=== PATIENT | male | born 1950 | race Caucasian/White ===

== ENCOUNTER 2017-01-02 23:23 | Inpatient (IN) ==
[2017-01-02] MEDS ORDERED: Aspirin 81 MG TAB.CHEW PO ONE (23:38)
[2017-01-02 23:48] LABS: Basophils # 0.1 K/mcL (0.0-0.2); Basophils % 0.7 %; Eosinophils # 0.2 K/mcL (0.0-0.6); Eosinophils % 1.5 %; Hematocrit 48.3 % (37.5-50.1); Hemoglobin 16.7 g/dL (12.9-16.9); Immature Granulocytes % 0.6 % (0-4); Lymphocytes # 1.8 K/mcL (0.6-4.6); Lymphocytes % 15.8 %; Mean Corpuscular HGB Conc 34.6 g/dL (31.6-35.5); Mean Corpuscular Hemoglobin 29.3 pg (28.0-33.3); Mean Corpuscular Volume 84.7 fL (83.0-100.0); Mean Platelet Volume 8.6 fL (9.4-12.4); Monocytes # 0.9 K/mcL (0.0-1.3); Monocytes % 7.8 %; Neutrophils # 8.2 K/mcL (1.6-8.9); Platelet Count 317 K/mcL (140-400); Red Cell Distribution Width 13.6 % (11.5-14.5); Segmented Neutrophils % 73.6 %
[2017-01-02] MEDS ORDERED: *HR* FentaNYL (PF) 100 MCG/2 ML VIAL IVP ONE (23:48)
[2017-01-02] MEDS ORDERED: Ondansetron 4 MG/2 ML VIAL IVP ONE (23:48)
[2017-01-02 23:54] LABS: Prothrombin Time 10.9 Seconds (9.4-12.1)
[2017-01-02 23:57] LABS: Activated Partial Thrombo Time 29.7 Seconds (26.0-36.0)
[2017-01-03] LABS: BUN/Creatinine Ratio 19 (6-26); Blood Urea Nitrogen 26 mg/dL (8-26); Carbon Dioxide 26 mEq/L (19-29); Chloride 103 mEq/L (98-109); eGFR For African Americans > 60 (> 60); eGFR For Non-African Americans 53 (> 60)
[2017-01-03 00:01] LABS: Calcium 10.8 mg/dL (8.6-10.8); Glucose 107 mg/dL (70-99); Osmolality,Calculated 293 (280-300); Potassium 4.3 mEq/L (3.5-4.5); Sodium 139 mEq/L (136-145)
[2017-01-03] MEDS ORDERED: Nitroglycerin 0.4 MG TAB.SUBL SL ONE (00:02)
[2017-01-03] MEDS: Nitroglycerin 0.4 MG TAB.SUBL SL PRN ×2 (00:04→00:13)
[2017-01-03] MEDS ORDERED: 0.9 % Sodium Chloride 1,000 ML IVC ONE (00:13)
--- NOTE | 2017-01-03 00:16 | Emergency Department Note ---
START Narrative - START START: I examined this patient and my medical decision-making was reviewed with the GEAR TESTER/PA/Advanced Practice Nurse/Resident Physician. I agree with the documented findings, disposition and treatment plan as described except to the extent set forth below. ED attending note: Patient seen with emergency medicine resident Dr. Ball. Please see a copy of his note for details of the H&P, evaluation, management and disposition of this patient. We independently had yula-[id number] contact with the patient Briefly: 66-year-old male presents with intermittent chest pain at times worsen with exertion since 6 AM. Says that it has been getting progressively worse at times and came in tonight. Has high cholesterol and hypertension. Smokes cigar. Family history of coronary artery disease. Patient has no prior history of coronary artery disease. Patient's EKG nonspecific ST-T changes but no signs of ST elevation. Patient was given aspirin and nitroglycerin and fentanyl. Critical lab report came back critically elevated troponin at 0.9. Patient was notified of this. Patient likely has sustained a non-ST elevation myocardial infarction. Admission is pending awaiting hospitalist call back. Patient will get an STEMI protocol including heparin drip. Provided one-hour critical care service for this patient. Awaiting hospitalist call back.
[2017-01-03] MEDS ORDERED: Nitroglycerin 25 MG/250 ML INFUS..BTL IVC SCH (00:30)
[2017-01-03] MEDS ORDERED: *HR* Heparin 5,000 UNIT/ML VIAL IVP PRN ×3 (00:38→00:41)
[2017-01-03] MEDS ORDERED: *HR* Heparin 5,000 UNIT/ML VIAL IVP ONE ×2 (00:38→00:41)
--- NOTE | 2017-01-03 00:42 | Emergency Department Note ---
Disposition Clinical Impression: NSTEMI (non-ST elevated myocardial infarction) Disposition: Home, Self-Care Condition: Good Time of Disposition: 02:48 General Adult HPI - General Chief complaint: ED Chest Pain Stated complaint: CP Time Seen by Provider: 01/02/17 23:33 Source: patient Limitations: no limitations Nursing Notes Reviewed: Yes Vital Signs Reviewed: Yes - History of Present Illness HPI Narrative: Patient complaining of an aching chest pain in the center of his chest. No radiation. Associated nausea vomiting diaphoresis or shortness of breath. No alleviating or provoking factors. Began after he woke up. Progressively getting worse throughout the day. Pain Scale: 6 - Related Data Allergies Allergy/AdvReac Type Severity Reaction Status Date / Time No Known Allergies Allergy Verified 01/02/17 23:26 All systems ED: reviewed and negative except as stated. Constitutional: Denies: fever, chills ENT ED: Denies: congestion Cardiovascular: Reports: chest pain. Denies: palpitations, syncope Respiratory: Reports: dyspnea. Denies: cough, wheezes Gastrointestinal: Reports: nausea, vomiting. Denies: abdominal pain, diarrhea Genitourinary: Denies: urgency, dysuria, frequency Musculoskeletal: Denies: back pain, neck pain Integumentary: Denies: rash, abrasion Past Medical History - Past Medical History Attestation: Yes The following information was validated with the patient. Medical history: Reports: hyperlipidemia, hypertension - Social History Smoking Status: Current every day smoker Alcohol use: Reports: occasionally Drug use: Reports: none Physical Exam - General Limitations: no limitations General appearance: alert, in no apparent distress - Head Head exam: atraumatic, normocephalic, normal inspection - Eye Eye exam: Present: normal appearance, PERRL, EOMI. Absent: scleral icterus - ENT ENT exam: normal exam, normal oropharynx, mucous membranes moist - Neck Neck exam: Present: normal inspection, full ROM, trachea midline - Chest Chest inspection: Present: normal inspection, symmetric chest wall rise. Absent : tenderness - Respiratory Respiratory exam: Present: normal lung sounds bilaterally. Absent: respiratory distress - Cardiovascular Cardiovascular exam: Present: regular rate, normal rhythm, normal heart sounds - Abdominal Exam Abdominal exam: Present: soft, Non-Tender, normal bowel sounds. Absent: tenderness, distention, guarding, rebound - Extremities Exam Extremities exam: Present: normal inspection, full ROM, normal capillary refill. Absent: tenderness, pedal edema - Back Exam Back exam: Present: normal inspection, full ROM. Absent: tenderness, CVA tenderness (R), CVA tenderness (L) - Neurological Exam Neurological exam: Present: alert, oriented X3 - Psychiatric Psychiatric exam: Present: normal affect, normal mood - Skin Skin exam: Present: warm, dry, intact, normal color. Absent: rash, cyanosis, diaphoresis, erythema Course Course Narrative: Well-appearing healthy male patient presenting to the emergency department complaining of chest pain that began this morning. He states he woke up and noticed that he had an aching in his chest. He denies any cardiac history. He states he does have high cholesterol as well as hypertension that he takes medication for. He states that throughout the day the pain is gotten worse. He states that this time he is resting comfortably. He does report some shortness of breath associated with the chest pain as well as diaphoresis. He does also report 1 episode of vomiting today. He reports the chest pain as an ache across the center of his chest there is no radiation. He denies any nausea vomiting or diarrhea at this time. He denies any abdominal pain. His lung sounds are clear heart sounds are normal. He has no edema to his extremities. We will get an EKG as well as a cardiac workup on the patient. I anticipate admission due to his no cardiac history and chest pain story. - Reevaluation(s) Reevaluation #1: Patient is still having chest pain at this time. He states that it is getting worse. He has had 2 nitroglycerin and is going to receive fentanyl at this time. He is also had 4 friend. We will contact cardiology. Time: 00:29 Reevaluation #2: We are beginning to start the heparin and nitroglycerin drips. Walking by the patient's room he is holding his chest and appears to be short of breath. He does not look comfortable. Repeat EKG and a right-sided EKG we will consult the interventionalists. Please see EKG Dr. brewer for EKG changes. Time: 00:50 - Consultations Consultation #1: Dr Harry he advises to start the patient on a heparin and nitroglycerin drip. And admit to the hospital. He states that if this does not help with the patient's chest pain to contact the interventional radiologist starla. Time: 00:28 Consultation #2: Spoke with Dr Kaba. He accepted patient in stable condition. I did advise him that we were starting the patient on a heparin and nitroglycerin drip because of his continued pain. And at the transit mechanic was to be called if this did not relieve his pain. I spoke with the transit mechanic while was here in the emergency department. He is aware to contact Dr. Carrasquillo if the patient does develop ST elevation. Time: 00:42 Consultation #3: Spoke with Dr. Carrasquillo. He advised to give a dose of Brilinta while here. He is to receive Morphine for pain control and to call him if there is st elevation on his EKG. Time: 01:19 Vital Signs Temperature 97.4 F L 01/02/17 23:23 Pulse Rate 82 01/02/17 23:23 Respiratory Rate 18 01/02/17 23:23 Blood Pressure 167/99 01/02/17 23:23 O2 Sat by Pulse Oximetry 98 01/02/17 23:23 Temperature 97.4 F L 01/02/17 23:23 Pulse Rate 77 01/03/17 00:20 Respiratory Rate 16 01/03/17 00:20 Blood Pressure 110/79 01/03/17 00:20 O2 Sat by Pulse Oximetry 94 01/03/17 00:20 Oxygen Delivery Oxygen Delivery Room Air Medical Decision Making - Medical Records Medical records reviewed: Yes I reviewed the patient's medical records. - Lab Data Lab results reviewed: Yes I reviewed the patient's lab results. Result diagrams: 01/02/17 23:42 01/02/17 23:42 Lab Results 01/02/17 01/02/17 01/02/17 Range/Units 23:42 23:42 23:42 WBC 11.1 (4.3-11.1) K/mcL RBC 5.70 H (4.19-5.50) M/mcL Hgb 16.7 (12.9-16.9) g/dL Hct 48.3 (37.5-50.1) % MCV 84.7 (83.0-100.0) fL MCH 29.3 (28.0-33.3) pg MCHC 34.6 (31.6-35.5) g/dL RDW 13.6 (11.5-14.5) % Plt Count 317 (140-400) K/mcL MPV 8.6 L (9.4-12.4) fL Immature Gran % 0.6 (0-4) % Seg Neutrophils % 73.6 % Lymphocytes % 15.8 % Monocytes % 7.8 % Eosinophils % 1.5 % Basophils % 0.7 % Neutrophils # 8.2 (1.6-8.9) K/mcL Lymphocytes # 1.8 (0.6-4.6) K/mcL Monocytes # 0.9 (0.0-1.3) K/mcL Eosinophils # 0.2 (0.0-0.6) K/mcL Basophils # 0.1 (0.0-0.2) K/mcL PT 10.9 (9.4-12.1) Seconds INR 1.0 APTT 29.7 (26.0-36.0) Seconds Sodium 139 (136-145) mEq/L Potassium 4.3 (3.5-4.5) mEq/L Chloride 103 (98-109) mEq/L Carbon Dioxide 26 (19-29) mEq/L BUN 26 (8-26) mg/dL Creatinine 1.35 H (0.72-1.25) mg/dL Est GFR ( Amer) > 60 (> 60) Est GFR (Non-Af Amer) 53 L (> 60) BUN/Creatinine Ratio 19 (6-26) Glucose 107 H (70-99) mg/dL Calculated Osmolality 293 (280-300) Calcium 10.8 (8.6-10.8) mg/dL Troponin I (0-0.03) ng/mL 01/02/17 Range/Units 23:42 WBC (4.3-11.1) K/mcL RBC (4.19-5.50) M/mcL Hgb (12.9-16.9) g/dL Hct (37.5-50.1) % MCV (83.0-100.0) fL MCH (28.0-33.3) pg MCHC (31.6-35.5) g/dL RDW (11.5-14.5) % Plt Count (140-400) K/mcL MPV (9.4-12.4) fL Immature Gran % (0-4) % Seg Neutrophils % % Lymphocytes % % Monocytes % % Eosinophils % % Basophils % % Neutrophils # (1.6-8.9) K/mcL Lymphocytes # (0.6-4.6) K/mcL Monocytes # (0.0-1.3) K/mcL Eosinophils # (0.0-0.6) K/mcL Basophils # (0.0-0.2) K/mcL PT (9.4-12.1) Seconds INR APTT (26.0-36.0) Seconds Sodium (136-145) mEq/L Potassium (3.5-4.5) mEq/L Chloride (98-109) mEq/L Carbon Dioxide (19-29) mEq/L BUN (8-26) mg/dL Creatinine (0.72-1.25) mg/dL Est GFR ( Amer) (> 60) Est GFR (Non-Af Amer) (> 60) BUN/Creatinine Ratio (6-26) Glucose (70-99) mg/dL Calculated Osmolality (280-300) Calcium (8.6-10.8) mg/dL Troponin I 0.98 H* (0-0.03) ng/mL - EKG Data EKG #1 EKG attestation: Yes I reviewed and interpreted this EKG. EKG results narrative: Time 23:31 Normal sinus rhythm at a rate of 81. Pulse 131. QRS duration is 94. QT is 343. QTC is 381. There is some ST depression in leads V1 to V3. I do not appreciate any overt ST elevation. There is no previous EKG to compare to. EKG #2 EKG attestation: Yes I reviewed and interpreted this EKG. EKG results narrative: Patient having chest pain. Repeat EKG 00:07 Normal sinus rhythm at a rate of 74. TX interval is 146. QRS duration is 100. QT is 362. QTC is 390. Some T-wave flattening in lead 3 compared to the previous EKG the ST depression in lead V1 has resolved.. EKG #3 EKG attestation: Yes I reviewed and interpreted this EKG. EKG results narrative: Patient continues to have worsening chest pain. Repeat EKG 00:51 Normal sinus rhythm at a rate of 65. TX interval is 138. Respiration is 90. Does have ST depressions in leads V2 V3. EKG #4 EKG attestation: Yes I reviewed and interpreted this EKG. EKG results narrative: Right-sided EKG. 00:53 Normal sinus rhythm at a rate of 64. TX interval is 140. QRS duration is 91. QT is 364. QTC is 374. There is ST depressions noted in V1 and V2. Also V3.
[2017-01-03] MEDS ORDERED: Heparin 25,000 UNIT/500 ML D5W 25,000 UNIT/500 ML MLS IVC SCH ×2 (00:45)
[2017-01-03] MEDS ORDERED: *HR* FentaNYL (PF) 100 MCG/2 ML VIAL IVP ONE (00:50)
[2017-01-03] MEDS ORDERED: Acetaminophen 325 MG TABLET PO PRN (00:51)
[2017-01-03] MEDS ORDERED: Naloxone 0.4 MG/ML INJ IVP PRN (00:51)
[2017-01-03] MEDS ORDERED: Ondansetron 4 MG/2 ML VIAL IVP PRN (00:51)
[2017-01-03] MEDS ORDERED: 0.9 % Sodium Chloride 1,000 ML ONE ×2 (01:19→08:32)
[2017-01-03] MEDS ORDERED: *HR* Ticagrelor 90 MG TABLET PO ONE (01:23)
[2017-01-03] MEDS ORDERED: *HR* Morphine 2 MG/ML SYRINGE IVP PRN (01:28)
[2017-01-03] MEDS: 0.9 % Sodium Chloride 1,000 ML IVC SCH ×2 (01:31→08:42)
--- NOTE | 2017-01-03 01:37 | Internal Med History&Physical ---
Date of Encounter: 01/03/17 Time of Encounter: 01:20 Assessment and Plan (1) NSTEMI (non-ST elevated myocardial infarction) Current visit: Yes Status: Acute Patient will be admitted to inpatient status due to his non-STEMI. Expected to be in the hospital at least 2 midnights. Expected discharge disposition is to home. High risk due to risk of lethal arrhythmias and the need for intravenous heparin which needs close monitoring. Aspirin, statin, Ticagrelor. Unable to use beta lorne as his heart rate is in the 60s. Heparin drip and nitroglycerin drip. If his chest pain worsens overnight, will repeat EKG. If there are significant changes in the EKG suggestive of STEMI, we will contact interventional radiology. Will titrate nitroglycerin drip for adequate chest pain relief. Morphine as needed for severe pain. (2) HTN (hypertension) Current visit: Yes Status: Chronic Blood pressure is adequately controlled. Patient is on nitroglycerin drip. Eventual ASHLIE inhibitor after acute episode is resolved. Qualifiers: Hypertension type: essential hypertension Qualified Code(s): I10 - Essential (primary) hypertension (3) Tobacco abuse Current visit: Yes Status: Chronic Counseled extensively regarding the need for cessation (4) STEPHANIE (acute kidney injury) Current visit: Yes Status: Acute Acute kidney injury versus chronic kidney disease stage III that is due to hypertensive nephropathy. Will obtain urinalysis and urine protein creatinine ratio. Monitor renal function. Avoid nephrotoxic agents and hypotension. Internal Medicine - H&P: HPI Chief complaint: Chest pain Admitted From: Emergency Dept Plans for Post Hospital Care: Home History of present illness: Mr. Treviño is a 66 year old male who presented to the emergency room due to chest pain that started yesterday morning at 6 AM. Patient states that initially, the pain was 7/10 in intensity in the middle of the chest which was a heaviness character without any radiation. It was intermittent and without any aggravating or relieving factors. As the pain continued to get worse throughout the day, he presented to the emergency department last night. In the emergency department, he was found to have elevated troponin and EKG changes and has been diagnosed with non-STEMI and started on heparin drip. Cardiogenic was consulted and as the patient continued to have chest pain that was severe despite opiate medications, he has also been started on nitroglycerin drip. Currently, patient states that his pain is 3/10 in intensity. He denies any shortness of breath, palpitations. He does report having had nausea and vomiting earlier yesterday with this chest pain. He also reports feeling cold and clammy and excessive sweating. He denies having any lightheadedness, abdominal pain, diarrhea or ulceration. He denies any urinary symptoms or swelling in his legs. He denies any weakness in his arms or legs. Past Med Surg Social Fam HX - Past Medical History Attestation: Yes The following information was validated with the patient. Source: patient Medical history: hyperlipidemia, hypertension Psychiatric history: no psych history - Past Surgical History Surgical History: no surgical history - Social History Smoking Status: Current every day smoker (cigars) Alcohol use: occasionally Drug use: none Current living situation: Home, With Family Activity Level: Independent ambulation, Very active Recent Out of Country Travel Within the Last 8 Weeks: No Exposure or Possible Exposure to Illness During Travel: No - Family History Father Hx Family Cardiac Disorders: Yes (ME @ 53 yrs age) Internal Medicine - H&P: Meds Allergies No Known Allergies Allergy (Verified 01/02/17 23:26) All Systems PM: A 10-system review of systems was performed and is negative for pertinent findings except as documented above in the HPI. - Constitutional Vitals: Temp Pulse Resp BP Pulse Ox 97.4 F L 61 16 140/88 99 01/02/17 23:23 01/03/17 01:14 01/03/17 01:14 01/03/17 01:14 01/03/17 01:14 Exam: Gen.: Sitting in a chair. Mild distress. Eyes: Pupils equal, round and reactive to light. Extraocular muscles intact. ENT: Moist mucous membranes. No oropharyngeal erythema or discharge. Chest: Clear to auscultation bilaterally. No adventitious sounds present. CVS: First and second heart sounds present. No murmurs, rubs or gallops. Abdomen: Soft, nontender, nondistended. Bowel sounds present. No hepatosplenomegaly. Skin: No decubitus ulcers appreciated. FOUNDRY MOLDER: No focal neuro deficits present. Psychiatric: Alert, awake and oriented to time, place and person. Lymphatic system: No lymphadenopathy appreciated Internal Med - H&P Results - Labs CBC & Chem 7: 01/02/17 23:42 01/02/17 23:42 - EKG Data -: EKG Interpreted by Myself EKG shows normal: sinus rhythm, ST-T waves (ST depressions lateral leads) Rate: normal - EKG Data Prior EKG available for review: yes When compared to previous EKG: there are significant changes Interpretation IM: suggestive of ischemia - Impressions ITS Impressions Chest X-Ray 01/03/17 23:39 IMPRESSION: No evidence of acute cardiopulmonary disease. Sclerotic lesion within the proximal right humeral shaft, typically bone island. If patient history of malignancy, metastatic disease would be an additional differential consideration. D/ / James Black MD / James Black MD Interpreting Provider: James Black MD - Diagnostic Studies Chest x-ray Status: image reviewed by me (No acute infiltrate or abnormality identified)
[2017-01-03] MEDS ORDERED: *HR* LORazepam 0.5 MG TABLET PO ONE (01:48)
[2017-01-03 02:26] LABS: Alanine Aminotransferase 25 Units/L (0-55); Albumin 4.1 g/dL (3.5-5.0); Albumin/Globulin Ratio 1.1 (1.1-2.2); Alkaline Phosphatase 149 Units/L (38-126); Aspartate Amino Transferase 28 Units/L (5-34); Bilirubin,Direct 0.1 mg/dL (0.0-0.5); Bilirubin,Indirect 0.3 mg/dL (0.0-1.2); Bilirubin,Total 0.4 mg/dL (0.2-1.2); Globulin 3.6 g/dL (2.4-3.5); Total Protein 7.7 g/dL (6.0-8.3)
[2017-01-03 05:29] LABS: Basophils % 0.4 %; Eosinophils # 0.1 K/mcL (0.0-0.6); Eosinophils % 0.8 %; Hematocrit 45.3 % (37.5-50.1); Hemoglobin 14.7 g/dL (12.9-16.9); Immature Granulocytes % 0.9 % (0-4); Lymphocytes # 1.9 K/mcL (0.6-4.6); Lymphocytes % 18.5 %; Mean Corpuscular HGB Conc 32.5 g/dL (31.6-35.5); Mean Corpuscular Hemoglobin 28.4 pg (28.0-33.3); Mean Corpuscular Volume 87.6 fL (83.0-100.0); Mean Platelet Volume 8.8 fL (9.4-12.4); Monocytes # 0.9 K/mcL (0.0-1.3); Monocytes % 8.2 %; Neutrophils # 7.4 K/mcL (1.6-8.9); Platelet Count 304 K/mcL (140-400); Red Blood Count 5.17 M/mcL (4.19-5.50); Red Cell Distribution Width 13.6 % (11.5-14.5); Segmented Neutrophils % 71.2 %
[2017-01-03 05:52] LABS: Alanine Aminotransferase 23 Units/L (0-55); Albumin 3.4 g/dL (3.5-5.0); Albumin/Globulin Ratio 1.1 (1.1-2.2); Alkaline Phosphatase 126 Units/L (38-126); Aspartate Amino Transferase 47 Units/L (5-34); BUN/Creatinine Ratio 19 (6-26); Bilirubin,Total 0.5 mg/dL (0.2-1.2); Blood Urea Nitrogen 23 mg/dL (8-26); Calcium 9.8 mg/dL (8.6-10.8); Carbon Dioxide 25 mEq/L (19-29); Chloride 109 mEq/L (98-109); Glucose 106 mg/dL (70-99); Osmolality,Calculated 298 (280-300); Sodium 142 mEq/L (136-145); Total Protein 6.4 g/dL (6.0-8.3); eGFR For African Americans > 60 (> 60); eGFR For Non-African Americans 59 (> 60)
[2017-01-03 06:02] LABS: Potassium 5.7 mEq/L (3.5-4.5)
[2017-01-03] MEDS ORDERED: Calcium Gluconate 1,000 MG in D5% in Water 100 ML IVPB ONE (07:54)
--- NOTE | 2017-01-03 08:09 | Cardiology Consult Note ---
Date of Encounter: 01/03/17 Time of Encounter: 07:45 Assessment and Plan (1) NSTEMI (non-ST elevated myocardial infarction) Current Visit: Yes Status: Acute Troponin 0.98, 5.57 with ischemic ECG changes. Pain free upon exam. Given asa and brilinta. Continue IV heparin and nitroglycerin gtt. Recommend LHC with possible PCI; alternatives, risks, and benefits discussed, he is agreeable to proceed. Check echocardiogram. Cardiac rehab phase I consulted. Continue statin and brilinta. Will start daily asa and betablocker. Further recommendations to follow. (2) STEPHANIE (acute kidney injury) Current Visit: Yes Status: Acute Mild STEPHANIE upon presentation, now improved. Continue IV hydration, plan for LHC today. (3) HTN (hypertension) Current Visit: Yes Status: Chronic Currently controlled. Betablocker added, will continue to monitor closely. Qualifiers: Hypertension type: essential hypertension Qualified Code(s): I10 - Essential (primary) hypertension (4) HLD (hyperlipidemia) Current Visit: Yes Status: Acute Agree with high-intensity statin. Risk factor modification. Qualifiers: Hyperlipidemia type: mixed hyperlipidemia Qualified Code(s): E78.2 - Mixed hyperlipidemia (5) Tobacco abuse Current Visit: Yes Status: Chronic 4-5 cigars/day x45 years. Smoking cessation counseling provided. Discussion w patient/family: The assessment and plan as outlined above was discussed with the patient and/or family members who expressed understanding and agreement. All questions were answered. Thank you for involving us in the care of your patient. Please call with any questions. The patient will be discussed and reviewed with Dr. Manley; changes to be made accordingly. History of Present Illness Consult date: 01/03/17 Requesting physician: Kaci Ball Consult reason: NSTEMI Chief complaint: Chest pain History of present illness: Mr. Treviño is a 66 year old male with PMH significant for HTN, HLD, and tobacco use who presented [facility] with 1-day history of mid-sternal chest discomfort. He reports he woke up yesterday morning with discomfort, described as pressure; pain was intermittent throughout the day. Discomfort worsening yesterday evening which prompted ED evaluation. Associated symptoms include fatigue, nausea, and vomiting. Reports discomfort not related to exertion. He reports he is very active at home and exercises multiple times a week, notes he has been tired lately. Upon exam, he is pain free. Mild STEPHANIE upon admission, now improved with IV hydration. Initial troponin 0.98 with ischemic ECG changes. Past Med Surg Social Fam HX - Past Medical History Attestation: Yes The following information was validated with the patient. Source: patient Medical history: hyperlipidemia, hypertension Psychiatric history: no psych history - Past Surgical History Surgical History: no surgical history - Social History Smoking Status: Current every day smoker Packs per day: 4 cigars/day x45 years. Smokeless Tobacco Status: No Alcohol use: occasionally Drug use: none - Family History Father Living Status: Age at : 81 Cause of : Cancer Hx Family Cardiac Disorders: Yes ([place] late 50's) Hx Family Cancer: Yes Medications and Allergies Allergies No Known Allergies Allergy (Verified 01/02/17 23:26) All Systems Review: A 10-system review of systems was performed and is negative for pertinent findings except as documented above in the HPI. - Cardiovascular Cardiovascular: as per HPI Physical Examination Vital Signs, Last 4 Hours Temp Pulse Resp BP Pulse Ox 01/03/17 06:38 98.3 F 73 16 129/94 95 01/03/17 04:51 60 113/62 General: Conversant, No Apparent Distress HEENT: Atraumatic, Normocephaly Neck: No JVD Cardiac: Reg Rate and Rhythm, Normal S1 and S2 Lungs: Normal Breath Sounds Neuro: Alert and responsive Abdomen: Soft Skin: No rashes noted on visualized skin Musculoskeletal: No Chest Wall Tenderness Extremities: No Edema, Normal Pulses Results 01/03/17 05:13 01/03/17 05:13 Lab Results 01/03/17 01/03/17 01/03/17 05:13 05:13 05:13 WBC 10.4 Hgb 14.7 D Hct 45.3 Plt Count 304 APTT Sodium 142 Potassium 5.7 H D Chloride 109 Carbon Dioxide 25 BUN 23 Creatinine 1.24 Glucose 106 H Calcium 9.8 Total Bilirubin 0.5 AST 47 H ALT 23 Alkaline Phosphatase 126 Troponin I 5.57 H* 01/03/17 06:34 WBC Hgb Hct Plt Count APTT 59.8 H D Sodium Potassium Chloride Carbon Dioxide BUN Creatinine Glucose Calcium Total Bilirubin AST ALT Alkaline Phosphatase Troponin I Active Medications Acetaminophen (Tylenol) 650 mg PO Q6HR PRN PRN Reason: Mild Pain (1-3) Stop: 07/05/17 00:52 Atorvastatin Calcium (Lipitor) 80 mg PO HS SHIRA Stop: 07/05/17 21:01 Heparin Sodium (Porcine) (Heparin) 4,000 unit IVP Q6HR PRN PRN Reason: SEE COMMENTS Stop: 07/05/17 00:42 Heparin Sodium (Porcine) (Heparin) 2,000 unit IVP Q6H PRN PRN Reason: SEE COMMENTS Stop: 07/05/17 00:42 Nitroglycerin (Nitroglycerin) 25 mg in 250 mls @ 3 mls/hr IVC .Q24H SHIRA PRN Reason: 5 MCG/MIN Stop: 07/05/17 00:31 Last Admin: 01/03/17 01:07 Dose: 5 mcg/min, 3 mls/hr Heparin Sodium/Dextrose (Heparin 25,000 Unit/500 Ml D5w) 25,000 unit in 500 mls @ 19.595 mls/hr IVC .Q24H SHIRA; 12 UNIT/KG/HR PRN Reason: Protocol Stop: 07/05/17 00:46 Last Titration: 01/03/17 07:51 Dose: 11.99 unit/kg/hr, 19.595 mls/hr Sodium Chloride (0.9 % Sodium Chloride) 1,000 mls @ 125 mls/hr IVC .Q8H SHIRA Stop: 07/05/17 01:31 Last Admin: 01/03/17 01:31 Dose: 125 mls/hr Morphine Sulfate (Morphine Sulfate) 4 mg IVP Q3H PRN PRN Reason: Severe Pain (7-10) Stop: 07/05/17 01:29 Naloxone HCl (Narcan) 0.4 mg IVP Q2MIN PRN PRN Reason: Opioid Reversal Stop: 07/05/17 00:52 Nitroglycerin (Nitroglycerin) 0.4 mg SL Q5MIN PRN PRN Reason: Chest Pain Stop: 07/05/17 00:03 Last Admin: 01/03/17 00:13 Dose: 0.4 mg Ondansetron HCl (Zofran) 4 mg IVP Q6H PRN PRN Reason: Nausea And Vomiting Stop: 07/05/17 00:52 Ticagrelor (Brilinta) 90 mg PO BID [facility] Stop: 07/05/17 09:01 - Imaging and Cardiology Echo: pending Cardiac cath: pending Other Results: 12 hour tele: avg HR=69 SR, few couplets. - EKG Interpretation EKG results cardiology: personally reviewed Consult Discharge Plan - Plan Referrals: Raphael Richardson CNP [Primary Care Provider] -
[2017-01-03] MEDS ORDERED: Heparin 1,000 UNITS/500 mL NS 500 ML ONE (08:32)
[2017-01-03] MEDS ORDERED: *HR* Heparin 10,000 UNIT/10 ML VIAL ONE (08:32)
--- NOTE | 2017-01-03 08:32 | Pre-Sedation Evaluation ---
Pre-sedation evaluation - Pre-sedation checklist Date of procedure: 01/03/17 Procedure: [facility] Recent Vitals: Last Vital Signs Temp 98.3 F 01/03/17 06:38 Pulse 73 01/03/17 06:38 Resp 16 01/03/17 06:38 BP 129/94 01/03/17 06:38 Pulse Ox 95 01/03/17 06:38 H&P (including ROS) documented in medical record: Yes Previous reaction to sedatives/anesthetics: No Dietary Status: NPO after Midnight Airway Assessment: Patient can open mouth completely, TMJ function normal ASA Classification *see protocol: CLASS II-Mild systemic disease, E-EMERGENCY- Add to any of the above to indicate emergent (acute mi - nstemi) Plan of Care: Pt appropriate candidate for procedure/moderate/conscious sedation , Risks/benefits of procedure/sedation discussed w/ patient/family
[2017-01-03] MEDS ORDERED: Verapamil 5 MG/2 ML VIAL ONE (08:33)
[2017-01-03] MEDS ORDERED: Nitroglycerin 1,000 MCG/10 ML VIAL IV ONE (08:33)
[2017-01-03] MEDS ORDERED: *HR* Midazolam HCl 2 MG/2 ML VIAL ONE (09:13)
[2017-01-03] MEDS ORDERED: *HR* FentaNYL (PF) 100 MCG/2 ML VIAL ONE (09:14)
[2017-01-03] MEDS ORDERED: *HR* Ticagrelor 90 MG TABLET ONE (10:06)
--- NOTE | 2017-01-03 10:23 | Invasive Diagnostic Lab Proc ---
Name: David Treviño Date of Study: 01/03/2017 Date: 1950 Ht: 70.9in Medical Record#: [id number] Age: 66 Wt: 179.90lb Gender: Male BSA: 2.01 Order #: [id number] BMI: 25.19 Physicians Procedure Physician: Daniel Carrasquillo MD, [facility] Referring MD: Referring MD: Staff Name Position Time In Estrellita Brewer RN Scrub 09:16 AM Domenica Roldan RN Music Library Assistant 09:16 AM [facility], Jessica RT (R) Monitor 09:16 AM Indications Indication Non-Stemi Procedures Performed Procedure L HRT ARTERY/VENTRICLE ANGIO PRQ CARD BINDU STENT W/ANGIO 1 VSL Pre-Procedure Checklist Informed consent is complete signed and on chart. H\\T\\P is on chart. ID band is on and ID verified with patient. Patient NPO for procedure The procedure was described for the patient and questions were answered. Blood Pressure: 131/72 ECG is on chart. Rhythm: NSR Plan of Care Patient will tolerate the procedure without complications. Adequate level of comfort will be maintained. Hemodynamics will remain stable Patient will recover from procedure without complications. Respiratory function will be maintained. Cardiac rhythm will remain stable. Patient temperature will be maintained. Patient and/or family have verbalized understanding of the procedure. Patient Education Chief Complaint/Reason for Test: Cardiac Cath Developmental Category: Geriatric (65+ years) Developmentally Appropriate for Age: Yes Learning Barriers: None Education Needs: Procedure Education Method: Verbal Information Taught: Cardiac Cath Educational Evaluation: Able to repeat information Intravenous Access Time IV Size Location DC'd Fluid/Drip Rate Units RN 09:29 AM 18g 1 08/08" Patent On Arrival Rt Antecubital 0.9NaCl 25 ml/hr Allergies No Known Allergies Vital Signs Time BP (mmHg) HR (bpm) O2 Sat. RR (bpm) LOC 09:29 AM 131 / 72 65 693 % 16 5 = Fully awake and oriented or at pre-proc level 09:13 AM 140 / 90 80 99 % 14 09:18 AM 129 / 86 65 95 % 19 09:23 AM 141 / 60 67 91 % 26 09:28 AM 131 / 72 66 94 % 26 09:33 AM 120 / 73 65 93 % 12 09:38 AM 109 / 68 66 90 % 13 09:43 AM 112 / 64 66 93 % 8 09:48 AM 134 / 79 67 93 % 16 09:53 AM 128 / 77 62 94 % 48 09:58 AM 122 / 74 61 94 % 23 10:03 AM 121 / 69 64 94 % 23 10:08 AM 126 / 80 69 96 % Procedural Medications Time Medication Dose Units Method Given By 09:16 AM Oxygen 2 L/min nasal cannula Domenica Roldan RN 09:16 AM Versed 2 mg Intravenous Dmoenica Roldan RN 09:16 AM Fentanyl 50 mcg Intravenous Domenica Roldan RN 09:33 AM Lidocaine 2% 0.5 ml Subcutaneous Daniel Carrasquillo MD, FAC 09:34 AM Heparin 4000 units Nitroglycerin 200 mcg Verapamil 2.5 mg Intraarterial Daniel Carrasquillo MD, FACC 09:48 AM Heparin 2000 units Intravenous Domenica Roldan RN 10:10 AM Brilinta 90 mg Orally Domenica Roldan RN ASA Classification: CLASS II- Mild systemic disease (i.e. well-controlled diabetes, hypertension, asthma, cigarette smoking) Tanya Score Preprocedure Postprocedure Activity 2- Moves 4 extremities sustained head lift Activity 2- Moves 4 extremities sustained head lift Circulation 2- SBP +/= 20 points of pre-anesthetic level Circulation 2- SBP +/= 20 points of pre-anesthetic level Consciousness 2- Awake and alert oriented x 3 Consciousness 2- Awake and alert oriented x 3 O2 Saturation 2- Able to maintain O2 satruation of 92% on room air O2 Saturation 2- Able to maintain O2 satruation of 92% on room air Respiratory 2- Able to deep breathe and cough well Respiratory 2- Able to deep breathe and cough well Total Score 10 Total Score 10 Contrast Agent: Isovue Diagnostic Contrast: 147 ml Total Contrast: 147 ml Fluoro Dose: 461 mGy Activated Clotting Time Time Seconds to Clot 09:48 AM 265 Procedure Log Time Note Enter By 09:12 AM CathStat 09:12 AM Vitals capture started with the following parameters, Patient=Adult, Interval=5 min, Initial Tkpxeewv=713 mmHg, Deflation Rate=5 mmHg, Cuff placed on Right Arm 09:13 AM HR=80 bpm, ZENL=453/90 mmhg, SpO2=99.0 %, Resp=14 B/min, Comment=SR 09:15 AM Recorded ECG: HR=74 Condition=Condition 1 09:16 AM Pt arrived to laboratory cureman 2 at 09:16 ejohnson 09:16 AM Estrellita Brewer RN Position: Scrub Time in: :16 ejohnson 09:16 AM Domenica Roldan RN Position: Music Library Assistant Time in: 09:16 ejohnson 09:16 AM Jessica Saldana RT (R) Position: Monitor Time in: 09:16 ejohnson 09:16 AM Patient charges- Angio tray pack, Navilyst 3mm J, Pulse Oximetry and ACIST tubing and transducer ejohnson 09:16 AM Case Delayed No ejohnson 09:16 AM Physician arrived 09:16 ejohnson 09:16 AM ASA Class CLASS II- Mild systemic disease (i.e. well-controlled diabetes, hypertension, asthma, cigarette smoking) ejohnson 09:16 AM Robbin and lu completed ejohnson 09:16 AM Sign in performed according to hospital policy. ejohnson 09:16 AM Procedure start 09:16 ejohnson 09:16 AM Time: 09:16 Oxygen on at 2 L/min per nasal cannula by [facility] 09[facility]16 AM Time: 09:16 Versed 2 mg Intravenous [facility] AM Time: 09:16 Fentanyl 50 mcg Intravenous Given by Domenica [facility]an [facility] 09:18 AM HR=65 bpm, BOIZ=785/86 mmhg, SpO2=95.0 %, Resp=19 B/min, Comment=nsr 09:23 AM HR=67 bpm, WSLZ=449/60 mmhg, SpO2=91.0 %, Resp=26 B/min, Comment=nsr 09:28 AM HR=66 bpm, LMLC=093/72 mmhg, SpO2=94.0 %, Resp=26 B/min, Comment=nsr 09:30 AM Hair removed from procedure site in procedure lab using clippers. Right wrist and bilateral groin prepped with Chloraprep by Jessica Saldana RT (R), safety strap applied then patient was draped. Skin intact. tsites 09:31 AM Time out performed according to hospital policy tsites 09:33 AM HR=65 bpm, BNLU=932/73 mmhg, SpO2=93.0 %, Resp=12 B/min, Comment=nsr 09:33 AM Time: 09:33 0.5 ml Lidocaine 2% to right radial Subcutaneous Given by Daniel Carrasquillo MD, [facility] tsites 09:34 AM Access obtained by percutaneous puncture. 6Fr 10cm Terumo Glidesheath sheath placed in right Radial artery. [id number] tsites 09:34 AM Time: 09:34 Patient given 4,000 units Heparin, 200 mcg Nitroglycerin, and 2.5 mg Verapamil Intraarterial by Daniel Carrasquillo MD, [facility] tsites 09:34 AM 5Fr TIG catheter inserted over the wire [facility] tsites 09:34 AM 0.035 260cm Navilyst 3mmJ wire [id number] tsites 09:36 AM Wire removed tsites 09:36 AM LCA angiography performed in multiple views. tsites 09:36 AM Recorded Pressure: Ao, HR=71, Condition=Condition 1 (Aorta) Ao 95/70/82 09:38 AM Lesion found in Distal Circumflex. Pre Stenosis: 99 Pre ANNAMARIA Flow: 2: Partial Flow/Perfusion (> 1 but < 3) tsites 09:38 AM repositioning catheter tsites 09:38 AM HR=66 bpm, LWRB=866/68 mmhg, SpO2=90.0 %, Resp=13 B/min 09:38 AM RCA angiography performed in multiple views. tsites 09:38 AM Recorded Pressure: Ao, HR=70, Condition=Condition 1 (Aorta) Ao 119/46/61 09:38 AM wire reinserted catheter removed tsites 09:39 AM 5Fr Pigtail catheter inserted over the wire [facility] tsites 09:39 AM Coronary Dominance: right tsites 09:40 AM Lesion found in Mid RCA. Pre Stenosis: 60 Pre ANNAMARIA Flow: tsites 09:40 AM Wire removed tsites 09:40 AM Recorded Pressure: LV, HR=69, Condition=Condition 1 (Left Ventricle) LV 113/-3/13 09:40 AM Catheter selectively placed in left ventricle tsites 09:40 AM Bolus angiogram of left Ventricle complete: 10 ml/sec for a total of 20 mls tsites 09:41 AM Recorded Pressure: LV, Ao, HR=71, Condition=Condition 1 (Left Ventricle) LV 108/-1/11, (Aorta) Ao 89/28/65 09:41 AM wire reinserted catheter removed tsites 09:42 AM PCI Status Urgent tsites 09:42 AM PCI Indication: PCI for high risk Non-STEMI or unstable angina tsites 09:42 AM PCI lesion in Distal Circumflex. tsites 09:42 AM 6Fr RBL 3.5 Convey guide catheter was used to cannulate the PCI vessel successfully. reused? No tsites 09:42 AM Inflation device was opened. tsites 09:43 AM HR=66 bpm, VLAU=320/64 mmhg, SpO2=93.0 %, Resp=8 B/min, Comment=nsr 09:45 AM ACT drawn tsites 09:46 AM .014 PT Graphix 180cm guide wire across target lesion- successful. reused? No tsites 09:48 AM At 09:48 the ACT was 265 seconds. tsites 09:48 AM Time: 09:48 Heparin 2000 units Intravenous Given by Domenica Roldan RN tsites 09:48 AM HR=67 bpm, GZAX=160/79 mmhg, SpO2=93.0 %, Resp=16 B/min, Comment=nsr 09:49 AM 2.0 mm x 12 mm Emerge Monorail balloon across target lesion- successful. reused? No tsites 09:50 AM Balloon inflated @ 10 mykel for 15 seconds tsites 09:50 AM Recorded Pressure: Ao, HR=66, Condition=Condition 1 (Aorta) Ao 118/73/93 09:50 AM Balloon inflated @ 10 mykel for 15 seconds tsites 09:51 AM Balloon catheter removed intact. tsites 09:51 AM 2.25mm x 20mm Synergy drug-eluting stent across target lesion- successful Lot #[id number] tsites 09:53 AM HR=62 bpm, DEKT=589/77 mmhg, SpO2=94.0 %, Resp=48 B/min, Comment=nsr 09:54 AM Stent deployed @ 12 mykel for 33 seconds tsites 09:55 AM Stent delivery system removed intact. tsites 09:55 AM 2.25 mm x 20mm NC Trek Rx balloon across target lesion- successful. reused? No tsites 09:57 AM Balloon inflated @ 16 mykel for 24 seconds tsites 09:58 AM HR=61 bpm, QBFZ=286/74 mmhg, SpO2=94.0 %, Resp=23 B/min 09:59 AM Balloon catheter removed intact. tsites 10:00 AM 3.5 mm x 6mm NC Trek Rx balloon across target lesion- successful. reused? No tsites 10:02 AM Balloon inflated @ 16 mykel for 24 seconds tsites 10:03 AM HR=64 bpm, QLZG=428/69 mmhg, SpO2=94 %, Resp=23 B/min 10:07 AM Balloon catheter removed intact. tsites 10:07 AM Guide wire removed intact. tsites 10:07 AM Guide catheter removed intact. tsites 10:08 AM Procedure completed at 10:08 tsites 10:08 AM HR=69 bpm, HTLI=081/80 mmhg, SpO2=96 % 10:08 AM Sign out completed: Radiation Dose 461 mGy Fluoro Time: 6.4 Isovue 370 - 500ml contrast 147 ml given by Daniel Carrasquillo MD, [facility]. Complications: NoneCardiac Rehab Consult needed: YesConfirmed administered medications: Yes tsites 10:08 AM Isovue 370 - 500ml,1 Bottle(s) used. tsites 10:08 AM Arterial sheath pulled, Vasc Band closure device used and was Successful S/N. tsites 10:08 AM 9 ml air in Vasc Band. tsites 10:08 AM Post ECG NSR tsites 10:09 AM Post Blood Pressure 126/80 tsites 10:09 AM 10:09 Post Pulses Rt Radial 2+ tsites 10:09 AM Information taught Cardiac Cath, PCI, and Vasc Band tsites 10:09 AM Education needs Procedure, Plan of Care, and Responsibilities of Patient in Care tsites 10:09 AM Learning barriers :None tsites 10:09 AM Education Methods Verbal tsites 10:09 AM Education evaluation Able to repeat information tsites 10:09 AM Site status No bleeding/hematoma - Rt Wrist as reported by Estrellita Brewer RN at 10:09 tsites 10:10 AM Plavix, Effient or Brilinta given Yes tsites 10:10 AM Delay to floor No tsites 10:10 AM Patient out of room: 10:10 tsites 10:10 AM Family placed in consult room. tsites 10:11 AM Time: 10:10 Brilinta 90 mg Orally Given by Domenica Roldan RN tsites 10:13 AM Report given to francesca RAY Pt taken to 2N Room #3. 10:13 tsites 10:16 AM Right Coronary, Right Posterior Descending Arteries with Right Posterolateral and Acute Marginal branches with 60 % stenosis. If graft is supplying this area, 0 % stenosis tsites 10:16 AM Circumflex, Obtuse Marginal, Left Posterior Descending, and Left Posterolateral Coronary Arteries with 99 % stenosis. If graft is supplying this area, 0 % stenosis tsites Complications Complication None Hemodynamics Pressures Site Systolic/A Wave Diastolic/V Wave Mean AO 95 70 82 AO 119 46 61 LV 113 -3 13 LV 108 -1 11 AO 89 28 65 AO 118 73 93 Post Procedure Information Blood Pressure: 126/80 mmHg Rhythm: NSR Post procedural instructions were given Closure Device Time Device Success/Fail 01/03/2017 10:14:00 AM Mechanical Compression Successful Site Checks Time Location Status Staff Sheath In? Note 10:09 AM Rt Wrist No bleeding/hematoma Estrellita Brewer RN Pulses Time Site Pre-Procedure Post-Procedure Note 01/03/2017 9:29:00 AM Bilateral DP \\T\\ PT 2+ 01/03/2017 9:29:00 AM Bilateral radial 2+ 10:09:00 AM Rt Radial 2+ Updated by Jessica Saldana RT (R) on 01/03/2017 10:18:11 AM Jessica Saldana RT electronically signed on 01/03/2017 10:19:09 AM with status of Final
--- NOTE | 2017-01-03 11:23 | Event Note ---
Date of Encounter: 01/03/17 Time of Encounter: 11:21 66 M PMH of HTN, TObacco abuse Being managed for NSTEMI STEPHANIE S/P [facility] this am No chest pain at time of review Physical exam unremarkable, vitals stale STEPHANIE improving Continue current management
[2017-01-03] MEDS: Aspirin Enteric Coated 81 MG Tablet PO SCH (11:24)
[2017-01-03] MEDS: Metoprolol XL (24 HR) Succ 25 MG TAB.ER.24H PO SCH (11:25)
[2017-01-03] MEDS: *HR* Ticagrelor 90 MG TABLET PO SCH ×2 (11:25→22:01)
--- NOTE | 2017-01-03 11:26 | Event Note ---
Date of Encounter: 01/03/17 Time of Encounter: 09:00 - Cardiology Event Note Initial EKG not diagnostic of STEMI. Subsequent EKG suspicious for inferior current of injury. ACS protocol with aspirin, brilinta, heparin initiated on presentation with ntg drip reduced chest discomfort to mild. Repeat troponin consistent with acute AK. Patient emergently brought down for LHC showing codominant system with subtotally occluded distal circumflex s/p successful BINDU x 1. Preserved EF.
--- NOTE | 2017-01-03 12:37 | Electrocardiograph Report ---
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
--- NOTE | 2017-01-03 13:52 | Event Note ---
Date of Encounter: 01/03/17 Time of Encounter: 13:30 - Cardiology Event Note Seen and examined. Resting comfortably--no chest pain or discomfort. No issues with cath access site. s/p successful PTCA/BINDU to dLCx, EF preserved per LV gram, TTE pending. Recommend uninterrupted DAPT (asa + brilinta) for at least 1 year--verbalized understanding. Continue statin and betablocker. Recommend prn NTG tabs upon discharge. Cardiac Rehab phase I initiated. Post PCI education/restrictions discussed. Cardiology will sign-off, please call with questions. Will coordinate outpatient appt within 5-7 days with office. The patient was discussed and reviewed with Dr. Manley who agrees with plan as stated above.
--- NOTE | 2017-01-03 20:21 | Electrocardiograph Report ---
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
--- NOTE | 2017-01-03 20:22 | Electrocardiograph Report ---
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
[2017-01-04 00:33] LABS: Basophils # 0.1 K/mcL (0.0-0.2); Basophils % 0.5 %; Eosinophils # 0.2 K/mcL (0.0-0.6); Hematocrit 40.4 % (37.5-50.1); Hemoglobin 13.7 g/dL (12.9-16.9); Immature Granulocytes % 0.7 % (0-4); Lymphocytes # 1.6 K/mcL (0.6-4.6); Lymphocytes % 16.2 %; Mean Corpuscular HGB Conc 33.9 g/dL (31.6-35.5); Mean Corpuscular Hemoglobin 29.8 pg (28.0-33.3); Mean Corpuscular Volume 87.8 fL (83.0-100.0); Mean Platelet Volume 9.3 fL (9.4-12.4); Monocytes % 10.1 %; Platelet Count 267 K/mcL (140-400); Red Cell Distribution Width 13.8 % (11.5-14.5); Segmented Neutrophils % 70.5 %
[2017-01-04 00:44] LABS: BUN/Creatinine Ratio 18 (6-26); Blood Urea Nitrogen 23 mg/dL (8-26); Carbon Dioxide 23 mEq/L (19-29); Chloride 110 mEq/L (98-109); Glucose 115 mg/dL (70-99); Osmolality,Calculated 295 (280-300); Potassium 4.3 mEq/L (3.5-4.5); Sodium 140 mEq/L (136-145); eGFR For African Americans > 60 (> 60); eGFR For Non-African Americans 57 (> 60)
[2017-01-04 07:08] VITALS: BP 126/85
[2017-01-04] MEDS: *HR* Ticagrelor 90 MG TABLET PO SCH (07:39)
[2017-01-04] MEDS: Metoprolol XL (24 HR) Succ 25 MG TAB.ER.24H PO SCH (07:39)
[2017-01-04] MEDS: Aspirin Enteric Coated 81 MG Tablet PO SCH (07:39)
[2017-01-04] MEDS ORDERED: 0.9 % Sodium Chloride 500 ML IVC ONE (08:05)
[2017-01-04 08:52] LABS: Bilirubin,Urine Negative (Negative); Blood,Urine Negative (Negative); Clarity,Urine Clear (Clear); Color,Urine Yellow (Yellow); Glucose,Urine (UA) Normal (Normal); Ketones,Urine Negative (Negative); Leukocyte Esterase,Urine Negative (Negative); Nitrite,Urine Negative (Negative); Protein,Urine Negative (Neg-Trace); Specific Gravity,Urine 1.008 (1.010-1.025); Urobilinogen,Urine Normal (Normal)
--- NOTE | 2017-01-04 09:20 | Internal Med Progress Note ---
Date of Encounter: 01/04/17 Time of Encounter: 09:18 - Subjective Interval history: Seen and evaluated at bedside Being managed for NSTEMI, s/p [facility] Patient had complained of myalgias with use of lipitor in the past, changed to crestor Cr today slightly elevated , patient received contrast but had presented with STEPHANIE on day of presentation Denies prior hx of kidney disease Will give gentle bolus MOnitor Chem - Constitutional Vitals: Temp Pulse Resp BP Pulse Ox 98.3 F 60 16 126/85 97 01/04/17 07:05 01/04/17 07:48 01/04/17 07:05 01/04/17 07:05 01/04/17 07:05 General appearance: Present: A&O X 3, pleasant, no acute distress - Head Head exam: Present: atraumatic, normocephalic - Eye Eye exam: Present: PERRL, conjuntiva pink, sclera anicteric Pupils: Present: PERRL - Neck Neck exam general surgery: Present: supple, trachea midline. Absent: lymphadenopathy - Respiratory Respiratory exam: Present: CTAB. Absent: accessory muscle use, rales, rhonchi, wheezes - Cardiovascular Cardiovascular exam: Present: RRR, +S1, +S2. Absent: diastolic murmur, gallop, rubs, systolic murmur - GI/Abdominal GI/Abdominal exam: Present: normal bowel sounds, soft, no peritoneal signs. Absent: distended, tenderness - Extremities Exam Extremities exam: Present: warm, radial pulses palpable and symetrical. Absent : calf tenderness, cyanotic, pedal edema - Neurological Exam Neurological exam: Present: alert, CN II-XII intact, oriented X3, no focal deficits. Absent: pronater drift, facial droop, speech deficit - Skin Skin exam: Present: dry, intact Internal Medicine: Result - Labs CBC & Chem 7: 01/04/17 00:07 01/04/17 00:07 Labs: Short CBC 01/04/17 Range/Units 00:07 WBC 9.9 (4.3-11.1) K/mcL Hgb 13.7 (12.9-16.9) g/dL Hct 40.4 (37.5-50.1) % Plt Count 267 (140-400) K/mcL Neutrophils # 7.0 (1.6-8.9) K/mcL BMP 01/04/17 00:07 Sodium 140 Potassium 4.3 Chloride 110 H Carbon Dioxide 23 BUN 23 Creatinine 1.27 H Glucose 115 H Calcium 9.0 Cardiac Enzymes 01/03/17 01/03/17 01/04/17 Range/Units 08:25 19:21 00:07 Troponin I 10.82 H* 12.60 H* 10.17 H* (0-0.03) ng/mL Urine 01/04/17 Range/Units 08:35 Urine Color Yellow (Yellow) Urine Clarity Clear (Clear) Urine pH 6.0 (5.0-8.0) pH Units Ur Specific [place] 1.008 L (1.010-1.025) Urine Protein Negative (Neg-Trace) mg/dL Urine Glucose (UA) Normal (Normal) mg/dL - ABG Interpretation ABG results: PT/INR, D-dimer PT 10.9 Seconds (9.4-12.1) 01/02/17 23:42 Consult Discharge Plan - Plan Referrals: Raphael Richardson CNP [Primary Care Provider] - 01/09/17 9:00 am Killian Manley DO [Partnered Physician] - 01/11/17 8:30 am Prescriptions: Ticagrelor [Brilinta] 90 mg PO BID #60 tablet
--- NOTE | 2017-01-04 09:42 | Discharge Summary ---
Date of Encounter: 01/04/17 Time of Encounter: 09:41 - Discharge Diagnosis (1) CKD (chronic kidney disease) stage 3, GFR 30-59 ml/min Priority: Secondary Status: Chronic (2) NSTEMI (non-ST elevated myocardial infarction) Priority: Primary Status: Acute (3) HTN (hypertension) Priority: Secondary Status: Chronic Qualifiers: Hypertension type: essential hypertension Qualified Code(s): I10 - Essential (primary) hypertension (4) Tobacco abuse Priority: Secondary Status: Chronic (5) HLD (hyperlipidemia) Priority: Secondary Status: Chronic Qualifiers: Hyperlipidemia type: mixed hyperlipidemia Qualified Code(s): E78.2 - Mixed hyperlipidemia - Discharge Medications Prescriptions: Aspirin Enteric Coated [Aspirin EC] 81 mg PO DAILY #30 tablet. Lisinopril 2.5 mg PO DAILY #30 tablet Metoprolol XL (24 HR) Succ [Toprol Xl] 25 mg PO DAILY #30 tab.er.24h Nicotine Patch [Nicoderm] 21 mg TD DAILY #30 patch.td24 Rosuvastatin [Crestor] 20 mg PO HS #30 tablet Ticagrelor [Brilinta] 90 mg PO BID #60 tablet Home Medications: Ticagrelor [Brilinta] 90 mg PO BID #60 tablet 01/03/17 [Rx] Aspirin Enteric Coated [Aspirin EC] 81 mg PO DAILY #30 tablet. 01/04/17 [Rx] Lisinopril 2.5 mg PO DAILY #30 tablet 01/04/17 [Rx] Metoprolol XL (24 HR) Succ [Toprol Xl] 25 mg PO DAILY #30 tab.er.24h 01/04/17 [ Rx] Nicotine Patch [Nicoderm] 21 mg TD DAILY #30 patch.td24 01/04/17 [Rx] Rosuvastatin [Crestor] 20 mg PO HS #30 tablet 01/04/17 [Rx] Ticagrelor [Brilinta] 90 mg PO BID tablet 01/04/17 [Rx] Allergies/Adverse Reactions: Allergies No Known Allergies Allergy (Verified 01/02/17 23:26) Procedures/tests Complete & Pending: Procedures Performed prior 72 hours Category Date Time Status Left Heart Cath [CL Cardiac Catheterization] [CL] Instrument Installer 01/03/17 07:36 Ordered Routine ECG 12 lead ECG [ECG] Routine Y 01/03/17 01:32 Completed ECG 12 lead ECG [ECG] Routine Y 01/03/17 10:15 Completed EV echocardiogram Routine Y 01/03/17 Completed Date of admission: 01/03/17 01:17 Primary care physician: Raphael Richardson CNP Consults: 01/03/17 01:32 Consult to Cardiac Rehabilitation-Phase1 [CONS] Routine Comment: Reason for Consult: AMI Call Completed: Yes Consult to Nurse Navigator [CONS] Routine Comment: Discharging clinician: Levi Harp Anticipated date of discharge: 01/04/17 - Patient Status Disposition: Home, Self-Care Condition: Good Functional capacity at discharge: independent ambulation Overall status at discharge: patient is back to baseline - Discharge Instructions Instructions: Metoprolol (By mouth), Lisinopril (By mouth), Aspirin (By mouth) , Nicotine (Absorbed through the skin), Rosuvastatin (By mouth), Ticagrelor (By mouth), Myocardial Infarction (DC), How to Stop Smoking (DC) Follow Up With: Raphael Richardson CNP [Primary Care Provider] - 01/09/17 9:00 am Killian Manley DO [Partnered Physician] - 01/11/17 8:30 am - Diet and Activity Activity: resume usual activities as tolerated Diet: low fat, low cholesterol, low salt diet Interval History: See below Hospital course: Mr. Treviño is a 66 year old male with medical history of hypertension, hyperlipidemia and tobacco abuse. Chart review also reveals the presence of chronic kidney disease at least stage III. Patient presented with chest pain, and elevated troponins. He was managed for an NSTEMI, he is status post left heart catheterization with drug-eluting stent placed. Patient is seen this morning, he is asymptomatic and clinically stable. His BUN/creatinine elevated, but better than his baseline from October 2016. His echocardiogram revealed normal ejection fraction, with no significant abnormalities. Patient was educated extensively on his new cardiac medications including aspirin, Gallia, metoprolol, and low-dose lisinopril. Patient continues to smoke 3 cigars per day, and is educated about tobacco cessation. He is interested in nicotine replacement therapy, and is prescribed nicotine patches. Recommend follow-up with primary care physician and special education inclusion teacher. Plan of care discussed, patient verbalizes understanding. Time spent discussing smoking cessation with patient: 3 to 10 minutes - Time Spent with Patient Total time spent providing and/or coordinating discharge services: Less than 30 minutes - Constitutional Vitals: Temp Pulse Resp BP Pulse Ox 98.3 F 60 16 126/85 97 01/04/17 07:05 01/04/17 07:48 01/04/17 07:05 01/04/17 07:05 01/04/17 07:05 General appearance: Present: A&O X 3, pleasant, no acute distress - Head Head exam: Present: atraumatic, normocephalic - Eye Eye exam: Present: PERRL, conjuntiva pink, sclera anicteric Pupils: Present: PERRL - Neck Neck exam general surgery: Present: supple, trachea midline. Absent: lymphadenopathy - Respiratory Respiratory exam: Present: CTAB. Absent: accessory muscle use, rales, rhonchi, wheezes - Cardiovascular Cardiovascular exam: Present: RRR, +S1, +S2. Absent: diastolic murmur, gallop, rubs, systolic murmur - GI/Abdominal GI/Abdominal exam: Present: normal bowel sounds, soft, no peritoneal signs. Absent: distended, tenderness - Extremities Exam Extremities exam: Present: warm, radial pulses palpable and symetrical. Absent : calf tenderness, cyanotic, pedal edema - Neurological Exam Neurological exam: Present: alert, CN II-XII intact, oriented X3, no focal deficits. Absent: pronater drift, facial droop, speech deficit - Skin Skin exam: Present: dry, intact
--- NOTE | 2017-01-04 10:32 | Invasive Diagnostic Lab ---
Name: David Treviño Date of Study: 01/03/2017 Date: 1950 Ht: 180.0 cm /70.9 in Medical Record#: [id number] Age: 66 Wt: 81.6 kg / 179.90 lb Account/Order#: [id number] Gender: Male BSA: 2.01 Order #: [id number] Fluoro Dose: 461 mGy BMI: 25.19 Procedure Physician: Daniel Carrasquillo MD, [facility] Referring MD: Referring MD: Procedures Performed: LEFT HEART CATH PCI of acute OH Indications: Non-Stemi - Acute OH with rising troponin and angina Impressions: There is severe one vessel coronary artery disease. The left ventricle is normal and has normal contractility EF 65% Patient had successful PTCA/Drug-Eluting Stent placement in the distal Circ for subtotal occlusion 99%, culprit for OH Recommendations: Optimal medical therapy of patient's disease. Aggressive risk factor modification. Patient being referred for cardiac rehab. History/Risk Factors: Hypertension Dyslipidemia Procedure Access obtained in the right Radial artery by percutaneous puncture Patient had successful PTCA/Drug-Eluting Stent placement in the distal Circ. Complications: None Contrast: Isovue 147ml Closure Device: Mechanical Compression Hemodynamics: Pressures Site Systolic/ A Wave Diastolic/ V Wave End Diastolic/ Mean HR AO 95 70 82 71 AO 119 46 61 70 LV 113 -3 13 69 LV 108 -1 11 71 AO 89 28 65 71 AO 118 73 93 66 LV Ventriculography Ejection Method: LV Gram Ejection Fraction: 65% Wall Motion: [place]O Anterobasal Normal Anterolateral Normal Apical: Normal Inferoapical Normal Inferobasal Normal Coronary Dominance: right Lesion Findings/Interventions * Left Main Coronary Artery The LMCA is angiographically free of disease. * Left Anterior Descending The LAD proximal normal, mid portion 40% stenosis The 1st Diagonal is angiographically free of disease. * Circumflex There is a 20 mm long, 99% stenosis in the Distal Circumflex. The lesion has a ANNAMARIA flow of 2 and has no thrombus present. An intervention was performed on the Distal Circumflex with a final stenosis of 0%. There were no lesion complications. The final ANNAMARIA flow was 3. Proximal portion of stent postdilated with 3.5 NC. * Right Coronary Artery There is a 50% stenosis in the Mid RCA. 40% in the R PDA Interventional Device(s) Vessel Segment Type Name Diameter (mm) Length (mm) Distal Circumflex Balloon Emerge Monorail 2 12 Distal Circumflex Drug Eluting Stent Synergy 2.25 20 Distal Circumflex Balloon NC Trek Rx 2.25 20 Distal Circumflex Balloon NC Trek Rx 3.5 6 Updated by Jessica Saldana RT (R) on 01/03/2017 10:19:19 AM Daniel Carrasquillo MD, FACC electronically signed on 01/04/2017 10:26:49 AM with status of Final
== END 2017-01-04 10:44 | disposition home or self-care (01) | DRG 247 ==
LOC: 2NNU 23:23 → EMEROO 23:23 → 2NNU 01-03 02:36
PROVIDERS: ADMIT Internal Medicine; ATTEND Internal Medicine